=== PATIENT | female | born 1945 | race Caucasian/White ===

== ENCOUNTER 2023-11-21 11:00 | Outpatient (RCR) | payer MEDICARE, SELFPAY ==
--- NOTE | 2023-11-02 08:17 | HP.OTEVAL ---
Patient's Visit Information Visit Information Visit Information: SPENCER SOTO is a 78 year old F, referred to Occupational Therapy by MARIANELA SEGOVIA, with a diagnosis of Lymphedema right LE. Date of Evaluation: 11/01/23 Occupational Therapist: Yahaira Collins, DEE/Naomi, CHT Subjective Subjective: This 78 year old female was seen for OT eval with dx of right LE lymphedema. pt is with her niece and she did help report pts PMH. Pt states she has tried to use compression socks in past but typically is unable to put them on. States she took a fall about two years ago and now her right hip and back cause her pain and limited ROM. Pt states she did try pool therapy in past but due to her fear of swimming pt was unable to keep going. Pt states she did get new order for compression devices and would like the Velcro closure devices to increase compliance with wearing compression. pt states she is on O2 at night 3L. pt states she is not really sure when her swelling in her leg started. Could have been years ago. pt on water pill for heart condition ADLs Comments: pt lives alone reports she walks with rollator reports IND with bathing/dressing/cooking and other IADLs pt states she does have to stop what she is doing because of right hip/back pain. Pain right hip pain: Current Pain Intensity: 3 Pain Intensity Range: 4 Lymphedema (Circumferential Measure) Mid-foot: right 24cm left 22cm Ankle: right 37 left 27 Lower calf: right 44cm left 36cm Largest calf: right 55cm left 41cm Below knee: right 44cm left 40cm Lower Exremity Comments: pt demo with stage II lymphedema- dry skin bilaterally Sensation Sensation Comments: denies Lower Limb Functional Index Lower Extremity Functional Score: 24 Goals Goal: Patient will demonstrate a 20% reduction in edema by discharge: Yes Goal: Patient will demonstrate adequate knowledge of self-bandaging by the end of the first week.: Yes Goal: Patient will demonstrate adequate knowledge of self-massage by the end of the second week.: Yes Goal: Patient will demonstrate adequate knowledge of skin care and precautions by the end of the first week.: Yes Goal: Patient will demonstrate adequate knowledge of therapeutic exercises by discharge.: Yes Goal: Patient will select an appropriate compression garment and demonstrate adequate knowledge of correct donning technique, care and wearing schedule by discharge.: Yes Goal: Patient will voice understanding of need to replace compression garment every four to six months by discharge.: Yes Rehabilitation General Assessment: Pt demo with right LE edema limiting pts IND with ambulation. Pt would benefit from skilled OT services 3-4 visits to ed. pt on life long lymphedema mtg., lymph stimulation exercise, along with ed. pt how to perform self manual lymph massage. Pt also ed. on use of compression alternatives ( Velcro closure compression devices) 20-20mmHgg to increase IND with donning compression as well as increase compliance with wearing a compression device. Pt and family ed. on skin care and precautions. Therapist also ed. pt to move every 45min and ambulate 10 min to from kitchen/bathroom to increase circulation and improve her breathing. Pt and family were leaving today to get compression devices. pt to return to ensure proper fit, and to review pts understanding of her lymphedema exercise and self manual massage. Therapist will check to to ensure pt is a candidate for lymphedema pumps to stimulate circulation. Rehabilitation Potential: Questionable Anticipated Interventions Anticipated Interventions: Education re Diagnosis, Education re Life-long lymphedema Management, Education re Self-Bandaging Techniques, Education re Skin Care and Precautions, Education re Self Massage Techniques, Education re Correct Donning Tech,Care&Wearing Sched Comp Garments, Caregiver Training and Home Program Visit Plan Frequency: Every Other Week Duration: 4 Weeks TEXT: Thank you for the opportunity to evaluate your patient. For Medicare and Medicare HMO plans, please review the plan of care and approve it. It will need to be FAXED BACK to us at [phone] for Medicare purposes. Please let me know if there are questions or concerns regarding this plan of care. Physician Signature: Date:
== END 2023-11-21 19:00 | disposition home or self-care (01) ==
LOC: OT 11:00
PROVIDERS: PCP Nurse Practitioner Family
DX: I89.0 Lymphedema, not elsewhere classified (principal)
CPT/HCPCS: 97110; 97166; 97530